=== PATIENT | female | born 1995 | race Caucasian/White ===

== ENCOUNTER 2017-04-05 10:04 | Emergency (ER) | payer MEDICARE ==
[~2017-04-05 10:04] MED LIST: FERROUS SULFAT325 MG PO; HYDROCODONE-APA1 TAB PO; IBUPROFEN600 MG PO; PROMETRIUM100 MG PO
[2017-04-05 10:57] LABS: ALBUMIN 3.6 g/dL (3.4-5.0); ALKALINE PHOSPHATASE 44 U/L (46-116); ALT (SGPT) 24 U/L (10-68); BILIRUBIN - TOTAL 0.56 mg/dL (0.2-1.3); CALC OSMOLALITY 275 mosm/kg (275-300); CALCIUM 8.8 mg/dL (8.5-10.1); CHLORIDE - SERUM 105 mmol/L (98-107); CREATININE - SERUM 0.7 mg/dL (0.6-1.3); GLUCOSE 87 mg/dL (74-106); POTASSIUM - SERUM 4.1 mmol/L (3.5-5.1); PROTEIN - SERUM 7.5 g/dL (6.4-8.2); SODIUM 139 mmol/L (136-145); UREA NITROGEN 10 mg/dL (7-18); eGFR NON AFRICAN AMERICAN > 90 mL/min (90-120)
[2017-04-05 11:04] LABS: HCG - QUANTITATIVE (MATERNAL) 33 mIU/mL
[2017-04-05 11:34] LABS: BASOPHILS 0.3 % (0-2); EOSINOPHILS 1.3 % (0-7); HEMATOCRIT 36.1 % (36.0-48.0); HEMOGLOBIN 11.7 g/dL (12-16); LYMPHOCYTES 32.9 % (15-50); MCH 26.7 pg (26.0-34.0); MCHC 32.4 g/dL (31.0-37.0); MCV 82.2 fL (80.0-100.0); MEAN PLATELET VOLUME 11.2 fL (7.4-10.4); MONOCYTES 10.4 % (2-11); NEUTROPHILS 55.1 % (40-80); RBC 4.39 10x6/uL (4.00-5.40); RDW 13.3 % (11.5-14.5); WBC 6.1 10x3/uL (4.8-10.8)
[2017-04-05 11:35] LABS: PLATELET COUNT 199 10x3/uL (130-400)
[2017-04-05 11:45] LABS: HCG SERUM POSITIVE (NEGATIVE)
[2017-04-05 11:57] LABS: APPEARANCE CLEAR (CLEAR); BILIRUBIN NEGATIVE (NEGATIVE); COLOR STRAW (YELLOW); GLUCOSE NEGATIVE (NEGATIVE); KETONE NEGATIVE (NEGATIVE); LEUKOCYTE ESTERASE NEGATIVE (NEGATIVE); NITRITE NEGATIVE (NEGATIVE); PROTEIN NEGATIVE (NEGATIVE); SPECIFIC GRAVITY 1.005 (1.005-1.020); UROBILINOGEN NORMAL (NORMAL)
[2017-04-05 11:58] LABS: EPITHELIAL CELLS OCC /hpf (0-5); WHITE CELLS - URINE OCC /hpf (0-5)
[2017-04-05 11:59] LABS: BACTERIA NONE SEEN /hpf (NONE SEEN)
== END 2017-04-05 12:59 | disposition home or self-care (01) ==
LOC: D.ER 10:04
PROVIDERS: Emergency Medicine
DX: O20.0 Threatened abortion (principal); Z3A.01 Less than 8 weeks gestation of pregnancy

== ENCOUNTER 2018-01-21 08:45 | Emergency (ER) | payer MEDICARE ==
[2018-01-21 09:43] LABS: BASOPHILS 0.2 % (0-2); EOSINOPHILS 0.4 % (0-7); HEMATOCRIT 31.7 % (36.0-48.0); HEMOGLOBIN 10.5 g/dL (12-16); IMMATURE GRANULOCYTES 0.2 % (0-5); LYMPHOCYTES 20.5 % (15-50); MCHC 33.1 g/dL (31.0-37.0); MCV 78.5 fL (80.0-100.0); MEAN PLATELET VOLUME 10.7 fL (7.4-10.4); MONOCYTES 7.9 % (2-11); NEUTROPHILS 70.8 % (40-80); RBC 4.04 10x6/uL (4.00-5.40); RDW 14.6 % (11.5-14.5); WBC 5.6 10x3/uL (4.8-10.8)
[2018-01-21 09:56] LABS: PLATELET COUNT 152 10x3/uL (130-400)
[2018-01-21 10:01] LABS: APPEARANCE HAZY (CLEAR); BACTERIA FEW /hpf (NONE SEEN); BILIRUBIN NEGATIVE (NEGATIVE); COLOR DK YELLOW (YELLOW); EPITHELIAL CELLS OCC /hpf (0-5); GLUCOSE NEGATIVE (NEGATIVE); KETONE MODERATE mg/dL (NEGATIVE); NITRITE NEGATIVE (NEGATIVE); PROTEIN NEGATIVE (NEGATIVE); RED CELLS - URINE OCC /hpf (0-5); SPECIFIC GRAVITY 1.025 (1.005-1.020); UROBILINOGEN NORMAL (NORMAL); WHITE CELLS - URINE RARE /hpf (0-5)
[2018-01-21 10:02] LABS: MUCUS >1+ /lpf (NONE SEEN)
[2018-01-21 10:08] LABS: ALBUMIN 2.9 g/dL (3.4-5.0); ALKALINE PHOSPHATASE 40 U/L (46-116); ALT (SGPT) 13 U/L (10-68); CALC OSMOLALITY 276 mosm/kg (275-300); CALCIUM 8.3 mg/dL (8.5-10.1); CARBON DIOXIDE 22.7 mmol/L (21.0-32.0); CHLORIDE - SERUM 106 mmol/L (98-107); CREATININE - SERUM 0.7 mg/dL (0.6-1.3); GLUCOSE 89 mg/dL (74-106); POTASSIUM - SERUM 3.2 mmol/L (3.5-5.1); PROTEIN - SERUM 6.8 g/dL (6.4-8.2); SODIUM 140 mmol/L (136-145); UREA NITROGEN 11 mg/dL (7-18); eGFR NON AFRICAN AMERICAN > 90 mL/min (90-120)
[2018-01-21 10:18] LABS: CKMB 0.7 U/L (0.0-3.6); CREATINE KINASE 72 UL (21-215); MAGNESIUM - SERUM 1.7 mg/dL (1.8-2.4)
[2018-01-21 10:21] LABS: TROPONIN-I < 0.017 ng/mL (0.000-0.060)
== END 2018-01-21 11:13 | disposition home or self-care (01) ==
LOC: D.ER 08:45
PROVIDERS: Family Medicine
DX: R07.89 Other chest pain (principal); E87.6 Hypokalemia; E83.42 Hypomagnesemia; R00.2 Palpitations; E86.0 Dehydration; I10 Essential (primary) hypertension; R00.0 Tachycardia, unspecified

== ENCOUNTER → 2018-02-28 11:01 | Outpatient (CLI) | payer MEDICARE ==
[2018-02-28 13:00] LABS: APPEARANCE HAZY (CLEAR); BACTERIA MODERATE /hpf (NONE SEEN); BILIRUBIN NEGATIVE (NEGATIVE); COLOR YELLOW (YELLOW); EPITHELIAL CELLS 0-5 /hpf (0-5); GLUCOSE NEGATIVE (NEGATIVE); KETONE NEGATIVE (NEGATIVE); NITRITE NEGATIVE (NEGATIVE); PROTEIN NEGATIVE (NEGATIVE); RED CELLS - URINE RARE /hpf (0-5); SPECIFIC GRAVITY 1.025 (1.005-1.020); UROBILINOGEN NORMAL (NORMAL); WHITE CELLS - URINE 25-50 /hpf (0-5); YEAST >1+ WITH HYPHAE /hpf (NONE SEEN)
[2018-02-28 13:01] LABS: MUCUS <1+ /lpf (NONE SEEN)
== END | disposition home or self-care (01) ==
LOC: D.LDO 11:01
PROVIDERS: Obstetrics & Gynecology
DX: O26.892 Other specified pregnancy related conditions, second trimester (principal); Z3A.20 20 weeks gestation of pregnancy

== ENCOUNTER → 2018-05-17 17:12 | Outpatient (CLI) | payer MEDICARE ==
[~2018-05-17 17:12] MED LIST changes: +MOTRIN600 MG PO
[2018-05-17 18:02] LABS: APPEARANCE CLEAR (CLEAR); BILIRUBIN NEGATIVE (NEGATIVE); COLOR YELLOW (YELLOW); GLUCOSE NEGATIVE (NEGATIVE); KETONE NEGATIVE (NEGATIVE); NITRITE NEGATIVE (NEGATIVE); PROTEIN NEGATIVE (NEGATIVE); SPECIFIC GRAVITY 1.025 (1.005-1.020); UROBILINOGEN NORMAL (NORMAL)
[2018-05-17 18:04] LABS: BACTERIA MODERATE /hpf (NONE SEEN); EPITHELIAL CELLS 0-5 /hpf (0-5); RED CELLS - URINE OCC /hpf (0-5); WHITE CELLS - URINE 0-5 /hpf (0-5)
[2018-05-17 18:05] LABS: YEAST >1+ WITH HYPHAE /hpf (NONE SEEN)
[2018-06-12 12:12] VITALS: BMI 33.5
== END | disposition home or self-care (01) ==
LOC: D.LDO 17:12
PROVIDERS: Obstetrics & Gynecology
DX: O26.893 Other specified pregnancy related conditions, third trimester (principal); Z3A.31 31 weeks gestation of pregnancy; M54.5 Low back pain

== ENCOUNTER → 2018-05-31 18:03 | Outpatient (CLI) | payer MEDICARE ==
[2018-06-12 12:12] VITALS: BMI 33.5
== END | disposition home or self-care (01) ==
LOC: D.LDO 18:03
DX: O26.899 Other specified pregnancy related conditions, unspecified trimester (principal); Z3A.00 Weeks of gestation of pregnancy not specified

== ENCOUNTER 2018-06-12 11:54 | Inpatient (IN) | payer MEDICARE ==
[2018-06-12] VITALS (13 sets, daily range): BP systolic 130–152; BP diastolic 76–97; Ht 165.1 cm; Wt 91.2 kg
[~2018-06-12] VITALS: Ht 165.1 cm; Wt 91.2 kg
[~2018-06-12 11:54] MED LIST changes: -MOTRIN600 MG PO
[2018-06-12 12:56] LABS: HEMATOCRIT 29.1 % (36.0-48.0); HEMOGLOBIN 9.4 g/dL (12-16); MCH 25.3 pg (26.0-34.0); MCHC 32.3 g/dL (31.0-37.0); MCV 78.2 fL (80.0-100.0); RBC 3.72 10x6/uL (4.00-5.40); RDW 15.3 % (11.5-14.5); WBC 8.7 10x3/uL (4.8-10.8)
[2018-06-12 17:16] LABS: HEMATOCRIT 29.2 % (36.0-48.0); HEMOGLOBIN 9.5 g/dL (12-16); MCHC 32.5 g/dL (31.0-37.0); MEAN PLATELET VOLUME 10.7 fL (7.4-10.4); PLATELET COUNT 130 10x3/uL (130-400); RBC 3.65 10x6/uL (4.00-5.40); RDW 15.4 % (11.5-14.5); WBC 11.9 10x3/uL (4.8-10.8)
[2018-06-12 17:42] LABS: CALC OSMOLALITY 275 mosm/kg (275-300); CALCIUM 7.4 mg/dL (8.5-10.1); CARBON DIOXIDE 21.9 mmol/L (21.0-32.0); CHLORIDE - SERUM 107 mmol/L (98-107); CREATININE - SERUM 0.4 mg/dL (0.6-1.3); GLUCOSE 115 mg/dL (74-106); POTASSIUM - SERUM 3.4 mmol/L (3.5-5.1); SODIUM 139 mmol/L (136-145); UREA NITROGEN 4 mg/dL (7-18); eGFR NON AFRICAN AMERICAN > 90 mL/min (90-120)
[2018-06-12 18:09] LABS: LYMPHOCYTES 5 % (15-50); NEUTROPHILS 95 % (40-80); PLATELET ESTIMATE NORMAL
[2018-06-12 18:28] LABS: INR 1.07 (0.85-1.17); PROTIME 13.5 SECONDS (11.6-15.0)
[2018-06-12 20:17] LABS: BASOPHILS 0 % (0-2); EOSINOPHILS 0 % (0-7); HEMATOCRIT 28.2 % (36.0-48.0); HEMOGLOBIN 9.2 g/dL (12-16); IMMATURE GRANULOCYTES 0.4 % (0-5); LYMPHOCYTES 5.1 % (15-50); MCH 26.1 pg (26.0-34.0); MCHC 32.6 g/dL (31.0-37.0); MCV 79.9 fL (80.0-100.0); MEAN PLATELET VOLUME 10.6 fL (7.4-10.4); MONOCYTES 4.2 % (2-11); NEUTROPHILS 90.3 % (40-80); PLATELET COUNT 135 10x3/uL (130-400); RBC 3.53 10x6/uL (4.00-5.40); RDW 15.2 % (11.5-14.5); WBC 13.2 10x3/uL (4.8-10.8)
[2018-06-13 04:10] VITALS: BP 142/90
[2018-06-13 05:48] LABS: BASOPHILS 0.1 % (0-2); EOSINOPHILS 0.1 % (0-7); HEMATOCRIT 24.8 % (36.0-48.0); HEMOGLOBIN 8.1 g/dL (12-16); IMMATURE GRANULOCYTES 0.4 % (0-5); LYMPHOCYTES 10.4 % (15-50); MCH 25.8 pg (26.0-34.0); MCHC 32.7 g/dL (31.0-37.0); MEAN PLATELET VOLUME 10.9 fL (7.4-10.4); MONOCYTES 7.4 % (2-11); NEUTROPHILS 81.6 % (40-80); PLATELET COUNT 149 10x3/uL (130-400); RBC 3.14 10x6/uL (4.00-5.40); RDW 15.5 % (11.5-14.5); WBC 10.7 10x3/uL (4.8-10.8)
[2018-06-13 07:30] VITALS: BP 148/87
[2018-06-13 07:33] LABS: RAPID PLASMA REAGIN Non Reactive (Non Reactive)
[2018-06-13 12:30] VITALS: BP 135/83
[2018-06-13 19:30] VITALS: BP 129/81
[2018-06-14 00:12] VITALS: BP 131/79
[2018-06-14 07:10] VITALS: BP 127/82
[2018-06-14 12:10] VITALS: BP 119/70
[2018-06-14 16:15] VITALS: BP 138/88
[2018-06-14 19:34] VITALS: BP 121/69
[2018-06-15 08:23] VITALS: BP 141/88
[2018-06-15] MEDS ORDERED: HYDROCODONE-APA1 TAB PO (10:39)
[2018-06-15] MEDS ORDERED: MOTRIN600 MG PO (10:40)
== END 2018-06-15 15:30 | disposition home or self-care (01) | DRG 765 ==
LOC: D.WS 11:54 → D.LD 11:54 → D.WS 16:20 → D.LD 06-14 16:45
PROVIDERS: Obstetrics & Gynecology
PROC: 0W3J0ZZ Control Bleeding in Pelvic Cavity, Open Approach (ICD-10-PCS; 2018-06-12)
PROC: 10D00Z1 Extraction of Products of Conception, Low, Open Approach (ICD-10-PCS; principal; 2018-06-12 12:00)
DX: O69.89X0 Labor and delivery complicated by other cord complications, not applicable or unspecified (principal); O72.1 Other immediate postpartum hemorrhage; O34.211 Maternal care for low transverse scar from previous cesarean delivery; O99.62 Diseases of the digestive system complicating childbirth; O99.214 Obesity complicating childbirth; K66.0 Peritoneal adhesions (postprocedural) (postinfection); Z3A.35 35 weeks gestation of pregnancy; Z37.0 Single live birth

== ENCOUNTER 2018-07-31 08:00 | Outpatient (CLI) | payer MEDICARE ==
[~2018-07-31] VITALS: Ht 165.1 cm; Wt 86.6 kg
[~2018-07-31 08:00] MED LIST changes: +MOTRIN600 MG PO
[2018-07-31 15:04] LABS: BASOPHILS 0.2 % (0-2); EOSINOPHILS 1.8 % (0-7); HEMATOCRIT 27.2 % (36.0-48.0); HEMOGLOBIN 8.3 g/dL (12-16); MCH 22.9 pg (26.0-34.0); MCHC 30.5 g/dL (31.0-37.0); MCV 75.1 fL (80.0-100.0); MEAN PLATELET VOLUME 10.1 fL (7.4-10.4); MONOCYTES 10.3 % (2-11); NEUTROPHILS 51.7 % (40-80); RBC 3.62 10x6/uL (4.00-5.40); RDW 14.5 % (11.5-14.5); WBC 4.4 10x3/uL (4.8-10.8)
[2018-07-31 15:07] LABS: PLATELET COUNT 229 10x3/uL (130-400)
[2018-09-11] MEDS ORDERED: ZOLOFT25 MG PO (15:22)
[2018-09-13 06:33] VITALS: Ht 165.1 cm; Wt 86.6 kg
== END 2018-07-31 08:01 | disposition home or self-care (01) ==
LOC: D.OPS 08:00 → EDSTATUS 08-02 09:30 → D.PAN 08-02 09:30
PROVIDERS: Obstetrics & Gynecology
DX: Z30.2 Encounter for sterilization (principal); Z01.812 Encounter for preprocedural laboratory examination

== ENCOUNTER 2018-09-13 05:30 | Day surgery (SDC) | payer MEDICARE ==
[2018-09-11 15:50] LABS: BASOPHILS 0.6 % (0-2); EOSINOPHILS 1.3 % (0-7); HEMATOCRIT 33.7 % (36.0-48.0); HEMOGLOBIN 10.5 g/dL (12-16); IMMATURE GRANULOCYTES 0.2 % (0-5); LYMPHOCYTES 39.8 % (15-50); MCHC 31.2 g/dL (31.0-37.0); MCV 73.7 fL (80.0-100.0); MEAN PLATELET VOLUME 10.1 fL (7.4-10.4); MONOCYTES 10.3 % (2-11); NEUTROPHILS 47.8 % (40-80); PLATELET COUNT 208 10x3/uL (130-400); RBC 4.57 10x6/uL (4.00-5.40); RDW 16.8 % (11.5-14.5); WBC 6.3 10x3/uL (4.8-10.8)
[~2018-09-13] VITALS: Ht 165.1 cm; Wt 86.8 kg
--- NOTE | ~2018-09-13 | OP ---
PATIENT NAME: LUTHER SCHILLING MEDICAL RECORD: [id number] :93 [facility] AD[facility] DATE: SURGEON: ARI HERMAN MD DATE OF OPERATION: 09/13/2018 PREOPERATIVE DIAGNOSES: 1. Multiparity, the patient desires permanent sterility. 2. Menorrhagia. 3. Anemia. PROCEDURES: 1. Laparoscopic tubal ligation via bipolar cautery. 2. Hysteroscopy. 3. NovaSure endometrial ablation. SURGEON: Ari Herman MD ESTIMATED BLOOD LOSS: Minimal. ANESTHESIA: General. INTRAVENOUS FLUIDS: Per anesthesia record. SPECIMENS: Endometrial curettings. FINDINGS: 1. Grossly normal-appearing fallopian tubes/uterus/ovaries. 2. Grossly normal appearing cervix and endometrial cavity. SPECIMENS: Endometrial curettings. COMPLICATIONS: None apparent. PROCEDURE IN DETAIL: The patient was taken to the operating room where general anesthesia was achieved without difficulty. The patient was then prepped and draped in normal sterile fashion in the dorsal lithotomy position in the [facility]. Following prep and drape, the bladder was drained of approximately 100 cc of clear yellow urine and a sponge stick was placed into the vagina for uterine elevation. Attention was then turned to the umbilicus where a 5-mm incision was made in the inferior aspect using an 11 blade. The 5-mm bladeless trocar was then used to enter the intraperitoneal space under direct visualization of laparoscope. The introducer was removed. The patient was insufflated, opening pressure was found to be less than 10 mmHg. The scope was then replaced into the trocar and intraperitoneal placement was confirmed. At this point, a second 5-mm port was placed in the midline approximately 5 cm above the pubic symphysis. A 5-mm skin incision was made. A second 5-mm bladeless trocar was used to enter the intraperitoneal space under direct visualization of the laparoscope. Attention was then turned to the bilateral fallopian tubes. The fimbriae were identified bilaterally and approximately 5 cm portion of the mid tube was then completely desiccated using the bipolar cautery paddles. Good hemostasis was noted from both spots. The patient was then desufflated and the trocars were removed. The skin incision was repaired with 3-0 Vicryl in an interrupted fashion. Attention was then turned to the vagina. The sponge stick was removed from the vagina and a Graves speculum was placed. Cervix is identified and grasped on its anterior lip with a single OPERATIVE REPORT [id number] LUTHER SCHILLING tooth tenaculum. A sound was performed and found to be less than 10 cm. Measurements of the cervical length and endometrial canal were made and the NovaSure endometrial ablation device was then inserted into the cavity. Pressure testing and vacuum precheck were both passed and a NovaSure ablation cycle was performed without difficulty. Following the end of the cycle, the NovaSure device was removed with no bleeding noted from the cervical os. Tenaculum was then removed. The patient was transferred to postanesthesia recovery stable without incident. TRANSINT:[id number] Voice Confirmation ID: [id number] DOCUMENT ID: [id number] ARI HERMAN MD at 1450 CC: [id number] DICTATION DATE: 09/28/18 0728 CLIENT SERVICES COORDINATOR: 09/28/18 0859 [facility] 09/13/18 [id number] [place] [address]
[~2018-09-13 05:30] MED LIST changes: +ZOLOFT25 MG PO
[2018-09-13 06:22] VITALS: BP 156/92; BMI 31.8
[2018-09-13 06:33] VITALS: BP 140/102; Ht 165.1 cm; Wt 86.8 kg
== END 2018-09-13 11:40 | disposition home or self-care (01) ==
LOC: D.OPS 05:30 → D.PAN 07:30 → D.OPS 11:40
PROVIDERS: Obstetrics & Gynecology
DX: N92.0 Excessive and frequent menstruation with regular cycle (principal); D64.9 Anemia, unspecified; Z30.2 Encounter for sterilization